=== PATIENT | female | born 1955 | race Caucasian/White ===

== ENCOUNTER → 2017-11-16 | Outpatient (CLI) | payer OTHER | LOC: FIMAGING 15:32 | PROVIDERS: ATTEND Internal Medicine | DX: Z12.31 Encounter for screening mammogram for malignant neoplasm of breast (principal); Z80.3 Family history of malignant neoplasm of breast | CPT/HCPCS: G0202 ==

== ENCOUNTER 2018-03-08 17:49 | Emergency (ER) | payer OTHER ==
--- NOTE | 2018-03-08 19:43 | EDPHY ---
H & P Stated Complaint: FELL WALKING DOG/IMPACTING FOREHEAD LAC ABOVE L EYE/MADDEN Time Seen by Provider: 03/08/18 19:42 HPI/ROS: HPI: This is a 63-year-old female who presents with Chief Complaint: FELL WALKING DOG/IMPACTING FOREHEAD LAC ABOVE L EYE/MADDEN Location: Left eyebrow Quality: Laceration Duration: Prior to arrival Signs and Symptoms: no fever, no nausea, no vomiting, no photophobia, no noise sensitivity, no neck stiffness, no ear pain, no tinnitus, no nasal congestion, no sinus pressure, no weakness, no radiation, no aura Timing: Acute Severity: Moderate Context: Patient reports that she was walking there labral dual when she went to step over a curb and accidentally tripped, falling forward and landing directly on the left side of her forehead/eyebrow. She denies LOC/amnesia/ nausea/vomiting. She does complain of some mild, nonradiating posterior bilateral neck pain and all left temporal headache. She does not take any blood thinners. She was ambulatory at the scene. She asked the a witness to call her . She reports that she has bipolar disorder and she is extremely anxious at this time. Reports tetanus up-to-date. She reports that she feels like she is a bit foggy but reports that she is at her baseline. Modifying Factors: None Comment: ROS: see HPI Constitutional: No fever, no chills, no weight loss Eyes: No blurred vision Respiratory: No shortness of breath, no cough Cardiovascular: No chest pain, no palpitations Gastrointestinal: No nausea, no vomiting, no diarrhea, no hematemesis, no blood in stool Genitourinary: No dysuria, no blood in urine Extremities: No myalgias, no edema Neurologic: No weakness, no numbness Skin: No rashes, no petechiae Hematologic: No bruising, no bleeding MEDICAL/SURGICAL/SOCIAL HISTORY: PSH: T&A; PMH: bipolar; hyperlipidemia; mitral valve prolapse Social history: CONSTITUTIONAL: Well-developed, well-nourished mildly anxious adult white female, awake and alert, no obvious distress HEENT: Deep, complex, 4 cm left eyebrow laceration. normocephalic, PERRL, EOMI. no globe entrapment, no raccoon eyes. no Del Toro signs.Tympanic membranes clear. No tympanic membrane rupture. Nares patent; no septal hematoma. Oropharynx clear, no exudate and moist pink mucosa. No malocclusion. no dental trauma. Airway patent. No lymphadenopathy. NECK: supple, no midline tenderness, flexion 45 degrees, extension 45 degrees, right and left lateral flexion 45 degrees. No meningismus. Cardiovascular: Normal S1/S2, regular rate, regular rhythm, without murmur rub or gallop. PULMONARY/CHEST: Symmetrical and nontender. no crepitus. Clear to auscultation bilaterally. Good air movement. No accessory muscle usage. ABDOMEN: Soft, nondistended, nontender, no ecchymosis, no rebound, no guarding , no peritoneal signs, no masses or organomegaly. No CVAT. PELVIC: no pain with rocking; bilateral hips flexion 125 degrees, extension 30 degrees, with no pain internal rotation and no pain external rotation. BACK: No midline tenderness, no paraspinous spasm, deep tendon reflexes 2/2, no pain with straight leg raise EXTREMITIES: 2/2 pulses, no deformities, no clubbing, no cyanosis or edema. NEUROLOGICAL: no focal neuro deficits. GCS 15. SKIN: Warm and dry, no erythema. no rash. Good capillary refill. Source: Patient Exam Limitations: No limitations - Personal History Current Tetanus/Diphtheria Vaccine: Yes - Medical/Surgical History Hx Asthma: No Hx Chronic Respiratory Disease: No Hx Diabetes: No Hx Cardiac Disease: No Hx Renal Disease: No Hx Cirrhosis: No Hx Alcoholism: No Hx HIV/AIDS: No Hx Splenectomy or Spleen Trauma: No Other PMH: PSH: T&A;. PMH: bipolar; hyperlipidemia; mitral valve prolapse - Social History Smoking Status: Never smoked Constitutional: Initial Vital Signs Temperature (C) 36.8 C 03/08/18 17:52 Heart Rate 77 03/08/18 17:52 Respiratory Rate 17 03/08/18 17:52 Blood Pressure 152/87 H 03/08/18 17:52 O2 Sat (%) 95 03/08/18 17:52 O2 Delivery Mode Room Air Allergies/Adverse Reactions: No Known Allergies Allergy (Verified 03/08/18 17:52) Home Medications: Medication Instructions Recorded Klonopin 12/06/15 LaMICtal 12/06/15 Pravastatin Sodium 12/06/15 Seroquel 12/06/15 Medical Decision Making Procedures: Procedure: Laceration repair. Verbal consent was obtained from the patient. The Deep, complex, 4 cm left eyebrow laceration was anesthetized in the usual fashion using 5 mL of 0.5% bupivacaine with epinephrine. The wound was irrigated, draped and explored to its base with a gloved finger. There were no deep structures involved. No tendon injury was identified. The wound was repaired with #3, 5 0 Vicryl subcutaneous, #5, 5-0 Prolene cutaneous. Good hemostasis was achieved and patient tolerated procedure well. Clean sterile dressing applied. The procedure was performed by myself. ED Course/Re-evaluation: Offered head CT scan and CT cervical scan to patient and . Based on [place] criteria, observation is recommended. Patient has been have politely declined head CT scan and cervical CT scan imaging. No LOC. No neurological deficits. Tetanus up-to-date. Patient appears to have a mild concussion. Complex Laceration repaired No signs of neurovascular compromise/tenting of skin/compartment syndrome/ extremities and joints examined above and below area of concern and are neurovascularly intact. This patient was seen under the supervision of my secondary supervising physician. I evaluated care for this patient independently. Differential Diagnosis: Head injury including but not limited to concussion, skull fracture, intraparenchymal contusion, subarachnoid, subdural and epidural hematoma. Departure - Departure Disposition: Home, Routine, Self-Care Clinical Impression: Laceration of left eyebrow without complication Qualifiers: Encounter type: initial encounter Qualified Code(s): S01.112A - Laceration without foreign body of left eyelid and periocular area, initial encounter Concussion Qualifiers: Encounter type: initial encounter Loss of consciousness presence/duration: without LOC Qualified Code(s): S06.0X0A - Concussion without loss of consciousness, initial encounter Condition: Good Instructions: Facial Laceration (ED), Concussion (ED), Care For Your Stitches ( ED) Additional Instructions: Please follow concussion precautions. Keep the dressing dry and in place for 48 hours. After 48 hours, you may remove the dressing; wash the site daily with mild soap and water; then pat dry. Take Tylenol 650 mg every 4 hours and/or Ibuprofen 600 mg every 8 hours with food as needed for pain. Return to the emergency room in 5-7 days to have your sutures removed. Follow-up with Dr. Shafer, if symptoms persist or worsen for your concussion. Return to the ER immediately if you have progressive headaches, neurologic deficits, gait abnormality, visual disturbance, slurred speech, or any other symptom that concerns you. Referrals: Shreya Carney MD [Primary Care Provider] - As per Instructions Delmy Shafer MD [Medical Doctor] - As per Instructions Stand Alone Forms: Work Excuse
[2018-03-08 20:56] VITALS: BP 144/84
== END 2018-03-08 20:55 | disposition home or self-care (01) ==
PROC: 0HQ1XZZ Repair Face Skin, External Approach (ICD-10-PCS; principal; 2018-03-08)
DX: S06.0X0A Concussion without loss of consciousness, initial encounter (principal); S01.112A Laceration without foreign body of left eyelid and periocular area, initial encounter; W01.0XXA Fall on same level from slipping, tripping and stumbling without subsequent striking against object, initial encounter; Y99.8 Other external cause status; Y93.01 Activity, walking, marching and hiking

== ENCOUNTER → 2018-11-10 | Outpatient (CLI) | payer OTHER | LOC: FIMAGING 10:24 | PROVIDERS: ATTEND Internal Medicine | DX: Z13.820 Encounter for screening for osteoporosis (principal); M81.0 Age-related osteoporosis without current pathological fracture ==

== ENCOUNTER → 2018-11-15 | Outpatient (CLI) | payer OTHER | LOC: FIMAGING 10:56 | PROVIDERS: ATTEND Internal Medicine | DX: Z12.31 Encounter for screening mammogram for malignant neoplasm of breast (principal); Z80.3 Family history of malignant neoplasm of breast ==